=== PATIENT | female | born 1945 | race Two or more races ===

== ENCOUNTER 2021-02-24 21:30 | Emergency (ER) | payer OTHER ==
[~2021-02-24] VITALS: Ht 149.9 cm; Wt 64.4 kg
[2021-02-25] MEDS ORDERED: HYDROcodone-ACET 5/325MG TAB PO ONE (01:30)
[2021-02-25] MEDS ORDERED: ACETAMINOPHEN 325 MG TAB PO ONE (02:30)
[2021-02-25] MEDS ORDERED: diazePAM 5 MG TAB PO ONE (02:30)
[2021-02-25 05:02] VITALS: BP 111/51
== END 2021-02-25 05:26 | disposition home or self-care (01) ==
LOC: ER 21:30
DX: R20.0 Anesthesia of skin (principal); R07.89 Other chest pain; G89.29 Other chronic pain; E11.9 Type 2 diabetes mellitus without complications; Z90.710 Acquired absence of both cervix and uterus
CPT/HCPCS: 70450; 93005